=== PATIENT | male | born 1990 | race African-American/Black ===

== ENCOUNTER 2017-10-25 07:24 | Emergency (ER) | payer OTHER | END 2017-10-25 08:41 | disposition home or self-care (01) | LOC: M ED 07:24 | DX: S93.402A Sprain of unspecified ligament of left ankle, initial encounter (principal); X50.9XXA Other and unspecified overexertion or strenuous movements or postures, initial encounter; Y92.89 Other specified places as the place of occurrence of the external cause; Y93.67 Activity, basketball; F17.200 Nicotine dependence, unspecified, uncomplicated | CPT/HCPCS: 73610 ==